=== PATIENT | female | born 1995 | race African-American/Black ===

== ENCOUNTER 2017-01-09 16:22 | Emergency (ER) | payer OTHER ==
[~2017-01-09] VITALS: Ht 165.1 cm; Wt 55.5 kg
[2017-01-09 17:12] LABS: BASO % 0.2 % (0.0-2.0); GRAN # 7.1 (1.4-6.5); GRAN % 79.5 % (42.2-75.2); HEMATOCRIT 40.9 % (35.0-45.0); HEMOGLOBIN 13.7 g/dl (12.0-15.0); LYMPH % 11.3 % (20.0-51.0); MEAN CELL VOLUME 90 fl (80.0-95.0); MEAN CORPUSCULAR HEMOGLOBIN 30 pg (26.0-32.0); MEAN CORPUSCULAR HGB CONC 34 g/dl (33.0-37.0); MEAN PLATELET VOLUME 11.1 fl (7.4-10.4); MONO # 0.8 (0.1-0.6); MONO % 8.6 % (1.7-9.3); PLATELET COUNT 146 K/mm3 (130-400); RED BLOOD COUNT 4.53 M/mm3 (4.10-5.30); REDCELL DISTRIBUTION WIDTH-CV 12.3 % (11.5-14.5)
[2017-01-09 17:16] LABS: PH 6 (5-8); URINE APPEARANCE Hazy; URINE BACTERIA Rare /hpf; URINE BILIRUBIN Negative (NEGATIVE); URINE BLOOD 1+ (NEGATIVE); URINE COLOR Yellow; URINE GLUCOSE Negative (NEGATIVE); URINE KETONE Negative (NEGATIVE); URINE UROBILINOGEN Negative (NEGATIVE); URINE WBC >50 /hpf
[2017-01-09 17:18] LABS: ADJUSTED CALCIUM 8.8 mg/dL (8.4-10.2); ALBUMIN 4.7 gm/dL (3.5-5.0); BILIRUBIN,TOTAL 0.9 mg/dL (0.0-1.0); CALCIUM 9.4 mg/dL (8.4-10.2); CREATININE, serum 0.74 mg/dL (0.52-1.25); POTASSIUM 3.9 mmol/L (3.4-5.0); TOTAL PROTEIN 8.3 gm/dL (6.4-8.2)
[2017-01-09 17:37] LABS: C-REACTIVE PROTEIN 5.3 mg/dL (0.0-0.9)
[2017-01-09] MEDS ORDERED: OMNICEF 300MG300 MG PO (19:02)
[2017-01-09] MEDS ORDERED: ZOFRAN 4MG T4 MG/TAB PO (19:02)
[2017-01-09 19:43] LABS: CHLAMYDIA/TRACH by PCR Female NOT DETECTED; NEISSERIA GON by PCR Female NOT DETECTED
[2017-01-09 19:45] VITALS: BP 122/72; PULSE 94; TEMP 98.9
== END 2017-01-09 19:46 | disposition home or self-care (01) ==
LOC: COL.ER 16:22
PROVIDERS: Emergency Medicine
DX: N10 Acute pyelonephritis (principal)
CPT/HCPCS: J0696; J1885; J7030; Q9967